=== PATIENT | male | born 1995 | race Caucasian/White ===

== ENCOUNTER → 2017-08-06 | Outpatient (CLI) | payer BC, OTHER | LOC: BMCIMAGING 13:35 | PROVIDERS: ATTEND Family Medicine | DX: S89.92XA Unspecified injury of left lower leg, initial encounter (principal); M89.9 Disorder of bone, unspecified; Y93.44 Activity, trampolining ==

== ENCOUNTER → 2018-08-04 | Outpatient (CLI) | payer BC, OTHER | LOC: BMCIMAGING 16:40 | PROVIDERS: ATTEND Emergency Medicine | DX: M25.562 Pain in left knee (principal); R07.9 Chest pain, unspecified ==